=== PATIENT | male | born 1980 ===

== ENCOUNTER 2019-01-06 20:47 | Emergency (ER) | payer MEDICAID ==
--- NOTE | 2019-01-06 21:10 | C.PDOC ---
History Of Present Illness The patient presents to the ED for evaluation of dizziness and headache which began around 4 days ago. Patient took a pill that was given by his doctor, without improvement. Patient denies chest pain, vision change, nausea, vomiting. Time Seen by Provider: 01/06/19 21:01 Chief Complaint (Nursing): Dizziness/Lightheaded History Per: Patient History/Exam Limitations: no limitations Onset/Duration Of Symptoms: Days (4) Current Symptoms Are (Timing): Still Present Additional History Per: Patient Past Medical History Reviewed: Historical Data, Nursing Documentation, Vital Signs Vital Signs: Last Vital Signs Temp 97.7 F 01/06/19 20:54 Pulse 100 H 01/06/19 20:54 Resp 20 01/06/19 20:54 BP 146/98 H 01/06/19 20:54 Pulse Ox 100 01/06/19 20:54 - Medical History PMH: No Chronic Diseases Surgical History: No Surg Hx Family History: States: Unknown Family Hx - Social History Hx Alcohol Use: No Hx Substance Use: No - Immunization History Hx Tetanus Toxoid Vaccination: No Hx Influenza Vaccination: No Hx Pneumococcal Vaccination: No Review Of Systems Constitutional: Negative for: Fever, Chills Eyes: Negative for: Vision Change Cardiovascular: Negative for: Chest Pain, Palpitations Respiratory: Negative for: Cough, Shortness of Breath Gastrointestinal: Negative for: Nausea, Vomiting Skin: Negative for: Rash, Lesions, Jaundice, Bruising Neurological: Positive for: Headache, Dizziness Physical Exam - Physical Exam Appears: Non-toxic, No Acute Distress Skin: Normal Color, Warm, Dry Head: Atraumatic, Normacephalic Eye(s): bilateral: Normal Inspection, Other (no nystagmus ) Ear(s): Bilateral: Normal Oral Mucosa: Moist Neck: Supple Chest: Symmetrical, No Deformity, No Tenderness Cardiovascular: Rhythm Regular, No Murmur Respiratory: No Rales, No Rhonchi, No Wheezing Extremity: Normal ROM, Capillary Refill (less than 2 seconds ) Neurological/Psych: Oriented x3, No Romberg Gait: Steady ED Course And Treatment - Laboratory Results Result Diagrams: 01/06/19 21:29 01/06/19 21:29 O2 Sat by Pulse Oximetry: 100 (on RA ) Pulse Ox Interpretation: Normal Progress Note: Bloodwork, urinalysis, CT Head ordered and reviewed. Antivert PO and Zofran IVP given. Reevaluation Time: 23:44 Reassessment Condition: Improved NIHSS Stroke Scale 2 - Date/Time Evaluation Performed Date Performed: 01/06/19 Time Performed: 21:29 When Was NIHSS Performed: Baseline - How Severe is the Stroke Level of Consciousness: 0=Alert LOC to Questions: 0=Both comments correct LOC to commands: 0=Obeys both correctly Best Gaze: 0=Normal Visual: 0=No visual loss Facial: 0=Normal Motor Arm - Left: 0=No drift Motor Arm - Right: 0=No drift Motor Leg - Left: 0=No drift Motor Leg - Right: 0=No drift Limb Ataxia: 0=Absent Sensory: 0=Normal Best Language: 0=No aphasia Dysarthia: 0=Normal articulation Extinction & Inattention (Neglect): 0=Normal, no object Score: 0 Disposition Counseled Patient/Family Regarding: Studies Performed, Diagnosis - Disposition Referrals: Kane Hayes MD [Medical Doctor] - Disposition: HOME/ ROUTINE Disposition Time: 21:10 Condition: FAIR Additional Instructions: Por favor regrese si ysmptoms recurren Prescriptions: Meclizine [Antivert] 25 mg PO TID #21 tab Ondansetron ODT [Zofran ODT] 1 odt PO BID PRN #6 odt PRN Reason: Nausea/Vomiting Instructions: Vertigo (a Type of Dizziness) (DC) Forms: [employer] (Italian) Print Language: CITIZEN OF [place] - Clinical Impression Clinical Impression: Dizziness - Scribe Statement The provider has reviewed the documentation as recorded by the Scribe (Kyra Whiting) Provider Attestation: All medical record entries made by the Scribe were at my direction and personally dictated by me. I have reviewed the chart and agree that the record accurately reflects my personal performance of the history, physical exam, medical decision making, and the department course for this patient. I have also personally directed, reviewed, and agree with the discharge instructions and disposition.
[2019-01-06 21:32] LABS: BASO # 0.1 K/uL (0.0-0.2); BASO % 0.7 % (0.0-2.0); EOS % 0.4 % (0.0-4.0); HEMOGLOBIN 15.2 g/dL (12.0-18.0); LYMPH # 1.8 K/uL (1.0-4.3); LYMPH % 24.3 % (20.0-40.0); MEAN CELL VOLUME 86.3 fL (80.0-94.0); MEAN CORPUSCULAR HEMOGLOBIN 29.1 pg (27.0-31.0); MEAN CORPUSCULAR HGB CONC 33.7 g/dL (33.0-37.0); MEAN PLATELET VOLUME 9.8 fL (7.2-11.7); MONO # 0.7 K/uL (0.0-0.8); MONO % 9.8 % (0.0-10.0); NEUT # 4.8 K/uL (1.8-7.0); NEUT % 64.8 % (50.0-75.0); NRBC % 0.1 % (0.0-2.0); RBC 5.23 Mil/uL (4.40-5.90); RED CELL DISTRIBUTION WIDTH 14.5 % (11.5-14.5); WHITE BLOOD COUNT 7.4 K/uL (4.8-10.8)
[2019-01-06 21:39] LABS: URINE BILIRUBIN NEGATIVE (NEGATIVE); URINE BLOOD NEGATIVE (NEGATIVE); URINE CLARITY Clear (Clear); URINE COLOR Yellow (YELLOW); URINE GLUCOSE (UA) NORMAL (Normal); URINE LEUKOCYTE ESTERASE NEG Leu/uL (Negative); URINE PROTEIN 1+ mg/dL (NEGATIVE); URINE UROBILINOGEN NORMAL mg/dL (0.2-1.0)
[2019-01-06 21:47] LABS: ALB/GLOB RATIO 1.3 (1.0-2.1); ALT/SGPT 60 U/L (21-72); AST/SGOT 27 U/L (17-59); BLOOD UREA NITROGEN 17 mg/dL (9-20); CALCIUM 8.9 mg/dl (8.6-10.4); GFR NON-AFRICAN AMERICAN > 60
[2019-01-06 21:53] LABS: BARBITURATES, UR NEGATIVE (NEGATIVE); BENZODIAZEPINES, UR NEGATIVE (NEGATIVE); OPIATES, UR NEGATIVE (NEGATIVE); PHENCYCLIDINE, UR NEGATIVE (NEGATIVE)
[2019-01-07 00:02] VITALS: BP 117/89; PULSE 78; RESP 22; TEMP 97.9; O2SAT 98
--- NOTE | 2019-01-07 13:02 | CT ---
Date of service: 01/06/2019 PROCEDURE: CT HEAD WITHOUT CONTRAST. HISTORY: Headache COMPARISON: None available. TECHNIQUE: Axial computed tomography images were obtained through the head/brain without intravenous contrast. Radiation dose: Total exam DLP = 1106.76 mGy-cm. This CT exam was performed using one or more of the following dose reduction techniques: Automated exposure control, adjustment of the mA and/or kV according to patient size, and/or use of iterative reconstruction technique. FINDINGS: HEMORRHAGE: No intracranial hemorrhage. BRAIN: Normal menezes-white matter differentiation and density are appreciated throughout the cerebrum and cerebellum with the brainstem appearing unremarkable as well. There is no mass effect. There is no suspicious extra-axial fluid collection and the midline brain anatomy appears diffusely unremarkable. VENTRICLES: Unremarkable. No hydrocephalus. CALVARIUM: Unremarkable. PARANASAL SINUSES: Unremarkable as visualized. No significant inflammatory changes. MASTOID AIR CELLS: Unremarkable as visualized. No inflammatory changes. OTHER FINDINGS: None. IMPRESSION: Unremarkable unenhanced head CT. Concordant preliminary report from [place], 01/06/2019, 10:34 p.m..
== END 2019-01-07 00:01 | disposition home or self-care (01) ==
LOC: C.ER 20:47
DX: R42 Dizziness and giddiness (principal)
CPT/HCPCS: 70450; 80053; 80324; 80345; 80346; 80349; 80353; 80358; 80361; 81001; 82948; 83992; 85025; 96374; 99285; J2405

== ENCOUNTER 2019-01-08 19:31 | Emergency (ER) | payer MEDICAID ==
[2019-01-08 19:46] VITALS: O2SAT 100
--- NOTE | 2019-01-08 20:49 | C.PDOC ---
History Of Present Illness 38 year old male presents to ED with complaint of headache and mild dizziness. Patient was last seen Jan.06 and has normal labs and head CT. He was prescribed zofran and methazine with no improvement. Patient denies nausea and vomiting. Time Seen by Provider: 01/08/19 20:35 Chief Complaint (Nursing): Headache History Per: Patient History/Exam Limitations: no limitations Onset/Duration Of Symptoms: Days (2) Quality: "Pain" Associated Symptoms: denies: Nausea, Vomiting Past Medical History Reviewed: Historical Data, Nursing Documentation, Vital Signs Vital Signs: Last Vital Signs Temp 98.4 F 01/08/19 19:44 Pulse 90 01/08/19 19:44 Resp 16 01/08/19 19:44 BP 131/90 01/08/19 19:44 Pulse Ox 100 01/08/19 19:44 - Medical History PMH: No Chronic Diseases Surgical History: No Surg Hx Family History: States: Unknown Family Hx - Social History Hx Alcohol Use: No Hx Substance Use: No - Immunization History Hx Tetanus Toxoid Vaccination: No Hx Influenza Vaccination: No Hx Pneumococcal Vaccination: No Review Of Systems Constitutional: Negative for: Fever, Chills, Weakness Eyes: Negative for: Vision Change Cardiovascular: Negative for: Chest Pain, Palpitations Gastrointestinal: Negative for: Nausea, Vomiting Neurological: Positive for: Headache, Dizziness. Negative for: Weakness, Numbness, Confusion Physical Exam - Physical Exam Appears: Well, Non-toxic, No Acute Distress Skin: Normal Color, Warm, Dry Head: Atraumatic, Normacephalic Ear(s): Bilateral: Normal Nose: Other (severe nasal passage erythema with kissing turbinates) Oral Mucosa: Moist Throat: Normal, No Erythema, No Exudate Neck: Normal ROM, Supple Chest: Symmetrical, No Deformity Extremity: Capillary Refill (<2 seconds) Neurological/Psych: Oriented x3, Normal Speech, Normal Cognition ED Course And Treatment O2 Sat by Pulse Oximetry: 100 (RA) Progress Note: Patient given ibuprofen PO and sudafed PO. Upon reassessment, patient is resting comfortably, in no distress, and is stable for D/C. Patient is advised to follow up with PMD with in 1-2 days. Patient is advised to return to ED if symptoms persist or worsen. Medical Decision Making Medical Decision Making: normal w/u including normal head CT 01/06/19 reviewed ++ nasal passage erythema prob sinus headaches pseudafed and Flonase instructed Disposition Doctor Will See Patient In The: Office Counseled Patient/Family Regarding: Studies Performed, Diagnosis - Disposition Referrals: Kane Hayes MD [Medical Doctor] - Disposition: HOME/ ROUTINE Disposition Time: 20:49 Condition: GOOD Additional Instructions: Pseudafed 30-60 mg cada 6 horas anya necessario [place] baja inflammaci'on de las pasages nasales ibuprofeno/advil 400-600 mg cada 6 horas anya necessario para dolor de himanshu Flonase (espray esteroidal) 1 espray cada lado del nariz cada 12 horas Sigue hasta el fin del invierno Sigue con logan medico anya necessario Instructions: Sinus Headache (DC) Forms: [employer] (Colombian) Print Language: PORTUGUESE - Clinical Impression Clinical Impression: Headache - Scribe Statement The provider has reviewed the documentation as recorded by the Scribe (Sofya Barrera) All medical record entries made by the Scribe were at my direction and personally dictated by me. I have reviewed the chart and agree that the record accurately reflects my personal performance of the history, physical exam, medical decision making, and the department course for this patient. I have also personally directed, reviewed, and agree with the discharge instructions and disposition.
[2019-01-08 21:51] VITALS: BP 129/75; PULSE 79; RESP 17; TEMP 97.9
== END 2019-01-08 21:51 | disposition home or self-care (01) ==
LOC: C.ER 19:31
DX: R51 Headache (principal)